=== PATIENT | male | born 1955 | race Caucasian/White ===

== ENCOUNTER 2018-06-15 07:38 | Inpatient (IN) | payer BC ==
[2018-06-15 07:46] VITALS: BMI 24.3
--- NOTE | 2018-06-15 08:11 | PDOC ---
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 Patient at bedside to assist in report. Patient reports acute of slurred speech, noted by his at approximately 0730 AM this morning. Last known well was 1000 PM yesterday evening (06/14/18) before going to bed. Also yesterday evening 1000 PM patient BS~130. This morning at 0745 BS~61. noted patient dysarthria, on attempt to pronounce juice. She assisted patient out of bed and into the car. Patient states that patient symptoms gradually improved on presentation to hospital. Patient states he is now at baseline, but feels tremulous, and fatigued. Patient states that symptoms similiar to prior TIA , CVA, and hypoglycemic episodes. Denies head trauma, LOC. Patient Drank 6 cups of orange juice this morning, per . Patient denies N/V, dysphagia, convulsions, LOC, F/C, GOODMAN, hearing loss, tinnitus, palpitations, orthopnea, PND, CP, SOB, urinary complaints, abdominal pain, diarrhea, constipation, lightheadedness, sensory changes. PMHx: as noted above ROS: as noted SHx: Denies h/o tobacco use or IVDA. Alcohol on weekends Allergies: NKDA PMD: Not on Staff. Dr. ulices Ulrich Neurology Past History - Past Medical History Allergies/Adverse Reactions: Allergies Allergy/AdvReac Type Severity Reaction Status Date / Time No Known Allergies Allergy Verified 06/15/18 07:41 Home Medications: Ambulatory Orders Ascorbate Calcium [Vitamin C] 500 mg PO DAILY 12/21/15 Aspirin [ASA -] 81 mg PO DAILY 12/21/15 Carvedilol [Coreg -] 6.25 mg PO DAILY 12/21/15 Cholecalciferol (Vitamin D3) [Vitamin D3] 2,000 unit PO DAILY 12/21/15 Ezetimibe [Zetia -] 10 mg PO DAILY 12/21/15 Levothyroxine [Synthroid -] 25 mcg PO DAILY 12/21/15 Magnesium Oxide [Magnesium] 500 mg PO DAILY 12/21/15 Mv-Mn/FA/Coq10/Lycopene/Lutein [Theragran-M Premier 50+ Caplet] 1 each PO DAILY 12/21/15 Nitroglycerin 0.4 mg SL DAILY PRN 12/21/15 [place]-3S/Dha/Epa/Fish Oil [Fish Oil 1,200 mg Softgel] 1 tab PO DAILY 12/21/15 Quinapril HCl [Accupril -] 40 mg PO DAILY 12/21/15 Simvastatin [Zocor -] 40 mg PO HS 12/21/15 Zinc 50 mg PO DAILY 12/21/15 Insulin Lispro [Humalog] 0 unit SQ DAILY #0 12/22/15 Anemia: No Asthma: No Cancer: No Cardiac Disorders: Yes ([place]) CVA: Yes (2014) COPD: No CHF: No Dementia: No Diabetes: Yes (IDDM-ON INSULIN PUMP) GI Disorders: No Disorders: No HTN: Yes Hypercholesterolemia: Yes Liver Disease: No Seizures: No Thyroid Disease: Yes (HYPOTHYROID DISEASE) - Surgical History Abdominal Surgery: No Appendectomy: No Cardiac Surgery: Yes (STENT PLACEMENT) Cholecystectomy: No Lung Surgery: No Neurologic Surgery: No Orthopedic Surgery: No - Immunization History Td Vaccination: Yes TDAP Vaccination: Yes Immunization Up to Date: Yes - Suicide/Smoking/Psychosocial Hx Smoking Status: No Smoking History: Smoker current status UNK Years of Tobacco Use: 0 Number of Cigarettes Smoked Daily: 0 Cigars Per Day: 0 Hx Alcohol Use: Yes (WEEKENDS) Drug/Substance Use Hx: No Substance Use Type: None Hx Substance Use Treatment: No Neuro Specific PMHX - Complaint Specific PMHX Glaucoma: No Herniated Disk: No Laminectomy: No Migraine: No Multiple Sclerosis: No TIA: No Review of Systems - Review of Systems Comments:: 06/15/18 08:12 GENERAL/CONSTITUTIONAL: No fever or chills. No weakness. HEAD, EYES, EARS, NOSE AND THROAT: No change in vision. No ear pain or discharge. No sore throat. CARDIOVASCULAR: No chest pain or shortness of breath RESPIRATORY: No cough, wheezing, or hemoptysis. GASTROINTESTINAL: No nausea, vomiting, diarrhea or constipation. GENITOURINARY: No dysuria, frequency, or change in urination. MUSCULOSKELETAL: No joint or muscle swelling or pain. No neck or back pain. SKIN: No rash NEUROLOGIC: + Slurred speech, and generalized weakness. No headache, vertigo, loss of consciousness, or change in sensation. ENDOCRINE: No increased thirst. No abnormal weight change HEMATOLOGIC/LYMPHATIC: No anemia, easy bleeding, or history of blood clots. ALLERGIC/IMMUNOLOGIC: No hives or skin allergy. *Physical Exam - Vital Signs Last Vital Signs Temp Pulse Resp BP Pulse Ox 82 18 170/100 100 06/15/18 07:44 06/15/18 07:44 06/15/18 07:44 06/15/18 07:44 - Physical Exam Comments: 06/15/18 08:13 GENERAL: Awake, alert, and fully oriented, in no acute distress HEAD: No signs of trauma, normocephalic, atraumatic EYES: PERRLA, EOMI, sclera anicteric, conjunctiva clear ENT: + Slight right sided droop of lateral oral commisure. Hearing grossly normal, nares patent, oropharynx clear without exudates. Moist mucosa NECK: Normal ROM, supple, no lymphadenopathy, JVD, or masses LUNGS: No distress, speaks full sentences, clear to auscultation bilaterally HEART: Regular rate and rhythm, normal S1 and S2, no murmurs, rubs or gallops, peripheral pulses normal and equal bilaterally. ABDOMEN: Soft, nontender, normoactive bowel sounds. No guarding, no rebound. No masses EXTREMITIES : Normal inspection, Normal range of motion, no edema. No clubbing or cyanosis. NEUROLOGICAL: Cranial nerves II through XII grossly intact. Normal speech, normal gait, no focal sensorimotor deficits NIH Stroke Scale - Initial Evaluation Level of consciousness: Alert Ask patient the month and their age: Answers both correctly Ask patient to open & close eyes; make fist and let go: Obeys both correctly Best gaze (horizontal eye movement): Normal Visual field testing: No visual field loss Facial paresis (Show teeth/raise eyebrows/close eyes tight): Minor paralysis ( flattened nasolabial fold, asymmetry on smiling) Motor Function: Left Arm: Normal Motor Function: Right Arm: Normal (extends arm 90 (or 45) degrees for 10 seconds without drift Motor Function: Left Leg: Normal (extends leg 30 degrees for 5 seconds without drift) Motor Function: Right Leg: Normal (extends leg 30 degrees for 5 seconds without drift) Limb Ataxia: No ataxia Sensory(Use pinprick test arms,legs,trunk,face/side to side): Normal Best language (Describe picture, name items, read sentences): No Aphasia Dysarthria (read several words): Normal articulation Extinction and Inattention: No abnormality - Total Score NIH Stroke Scale Score: 1 tPA Exclusion checklist 3-4.5h - Time Elapsed Date last known well: 06/14/18 Time last known well: 10:00 Elaspsed time: 1 Day(s) and 2 Hour(s) and 17 Minutes - Thrombolytic Therapy Candidate Is patient eligible for thrombolytic therapy: No - Exclusion Criteria 3-4.5 hr SBP greater than 185 or DBP greater than 110mmHg despite tx: No Recent IC/spinal surgery,head trauma or stroke<3mos.: No Active internal bleeding: No Blding diathesis(low plt ct, inc PTT,INR>1.7 or use of NOAC): No Symptoms suggest subarachnoid hemorrhage: No CT demonstrates multilobar infarct(>1/3 cerebral hemiphere): No Arterial puncture at noncompressible site in previous 7 days: No Blood glucose concentration less than 50mg/dL (2.7mmol/L): No - Relative Exclusion Criteria 3-4.5 hr Life expectancy <1 yr or severe co-morbid illness: No : No Patient/family refused: No Rapid improvement: No Stroke severity too mild: Yes Recent acute IN (w/in previous 3 months): No Seizure at onset with postictal residual neuro impairments: No Major surgery or serious trauma w/in previous 14 days: No Recent GI or hemorrhage (w/in previous 21 days): No - Add'l Relative Exclusion 3-4.5 hr Age > 80: No Hx of both diabetes AND prior ischemic stroke: Yes Taking an oral anticoagulant regardless of INR: No NIHSS >25: No - Ineligibility reason(s) Reasons No tPA given: Outside of window - delayed arrival Critical Care Time/[facility] Note - Medical Decision Making Note: 06/15/18 08:11 63 yo h/o HTN, HLD, CAD, IDDM s/p insulin pump placement, recurrent hypoglycemia , [place] s/p stent placement 02/2010, 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 BP 170/100, vitals otherwise wnl, AF, A&Ox3. POC GLU~170. Pre-[facility] stroke scale + with right sided facial droop (baseline), otherwise unremarkable. NIHSS~ 1. Will consider CVA vs. TIA. Will assess for hypoglycemia, electrolyte abnml, metabolic and toxic derangements, acid-base disturbances, infection. ED Course: 06/15/18 08:21 Stroke Order Set: CBC,CMP, Cardiac, TG, PT/INR CTH PT/INR EKG: NSR with absent FARSHAD, STD. Normal interval duration and axis. Contacted Dr. Ulrich/Neurology [employer] answering service. Awaiting call back. 06/15/18 08:[address] Ulrich, who agrees with management, Will come see patient. 06/15/18 09:08 CTH: No acute intracranial pathology 06/15/18 09:15 CBC: Unremarkable Plan to admit [facility] for TIA. 06/15/18 09:31 CBC: Unremarkable *DC/Admit/Observation/Transfer Diagnosis at time of Disposition: Slurred speech, Weakness, TIA (transient ischemic attack) - Discharge Dispostion Condition at time of disposition: Stable Decision to Admit order: Yes - Referrals - Patient Instructions - Post Discharge Activity
[2018-06-15] MEDS: SODIUM CHLORIDE 1,000 ML IV SCH (08:14)
[2018-06-15 09:00] LABS: INR 0.88 (0.83-1.09); PROTHROMBIN TIME (PATIENT) 10.4 SEC (9.7-13.0)
[2018-06-15 09:10] LABS: ALBUMIN 3.8 g/dl (3.4-5.0); ALK PHOS 52 U/L (45-117); ANION GAP 6 MMOL/L (8-16); BILIRUBIN,TOTAL 0.5 mg/dL (0.2-1); BLOOD UREA NITROGEN 14 mg/dL (7-18); CALCIUM 8.2 mg/dL (8.5-10.1); CHLORIDE 102 mmol/L (98-107); CHOLESTEROL 179 mg/dL (50-200); CO2 29 mmol/L (21-32); CREATININE 0.8 mg/dL (0.55-1.3); GLUCOSE,RANDOM 164 mg/dL (74-106); HDL CHOLESTEROL 70 mg/dL (40-60); POTASSIUM 4.7 mmol/L (3.5-5.1); SGOT/AST 66 U/L (15-37); SGPT/ALT 81 U/L (13-61); SODIUM 137 mmol/L (136-145); TOT PROT 7.2 g/dl (6.4-8.2); TRIGLYCERIDES 259 mg/dL (0-150)
--- NOTE | 2018-06-15 09:16 | PDOC ---
Attending Attestation - Resident Resident Name: Otto Villela - ED Attending Attestation I have performed the following: I have examined & evaluated the patient, The case was reviewed & discussed with the resident, I agree w/resident's findings & plan, Exceptions are as noted - HPI HPI: 06/15/18 09:12 63-year-old male with a history of hypertension, hyperlipidemia, CAD, insulin- dependent diabetes mellitus, CVA with residual right-sided facial droop presents with resolved slurred speech and generalized weakness. Patient woke up with the symptoms, went to sleep at 10 PM last night. reports his insulin pump showed a blood sugar of 61 at the time of the symptoms. Patient is often hypoglycemic per the but typically only shows symptoms when his blood sugar is in the 20s and 30s. Denies any headache, fevers, stiff neck, dizziness , chest pain, shortness of breath, abdominal pain, n/v/d. - Physicial Exam PE: 06/15/18 09:14 agree with resident exam - Medical Decision Making 06/15/18 09:14 63yo M with MMP presents to the ED with resolved slurred speech. BP elevated on arrival to the 170s, otherwise vitals wnl. +R sided facial droop which is baseline for pt, no other deficits. DDx includes TIA vs CVA vs metabolic disarray vs infection. Case discussed with Dr. Ulrich by Dr. Villela. Anticipate admission.
[2018-06-15 09:18] LABS: BASO % 0.8 % (0-2.0); EOS % 1.6 % (0-4.5); HEMATOCRIT 39.1 % (35.4-49); HEMOGLOBIN 13.5 GM/dL (11.7-16.9); LYMPH % 24.1 % (8-40); MCH 30.3 pg (25.7-33.7); MCHC 34.6 g/dl (32.0-35.9); MEAN CELL VOLUME 87.5 fl (80-96); MEAN PLT VOLUME 7.1 fl (7.5-11.1); MONO % 7.2 % (3.8-10.2); NEUT % 66.3 % (42.8-82.8); PLATELET COUNT 260 K/MM3 (134-434); RBC 4.47 M/mm3 (4.00-5.60); RDW 13.5 % (11.9-15.9); WHITE BLOOD COUNT 6.2 K/mm3 (4.0-10.0)
--- NOTE | 2018-06-15 10:46 | PN ---
Teaching Attending Note Name of Resident: Baltazar Meredith ATTENDING PHYSICIAN STATEMENT I saw and evaluated the patient. I reviewed the resident's note and discussed the case with the resident. I agree with the resident's findings and plan as documented. SUBJECTIVE: Patient is a 63-year-old male with a history of hypertension, hyperlipidemia, CAD, insulin-dependent diabetes mellitus, CVA with residual right-sided facial droop presents with resolved slurred speech and generalized weakness. As per the blood sugar was 67 when she checked it. Usually when the blood sugar is in 20's when he starts symptoms. OBJECTIVE: Vital Signs Temperature Pulse Rate 78 06/15/18 08:06 Respiratory Rate 16 06/15/18 08:06 Blood Pressure 173/96 H 06/15/18 08:06 O2 Sat by Pulse Oximetry (%) 100 06/15/18 08:06 GENERAL: Awake, alert, and fully oriented, in no acute distress HEAD: No signs of trauma, normocephalic, atraumatic EYES: PERRLA, EOMI, sclera anicteric, conjunctiva clear ENT: No facial droop is noted , improved. oropharynx clear without NECK: Normal ROM, supple, no lymphadenopathy, JVD, or masses LUNGS: No distress, speaks full sentences, clear to auscultation bilaterally HEART: RRR, normal S1 and S2, no murmurs, rubs or gallops, peripheral pulses normal and equal bilaterally. ABDOMEN: Soft, nontender, normoactive bowel sounds. No guarding, no rebound. No masses EXTREMITIES : Normal inspection, Normal range of motion, no edema. No clubbing or cyanosis. NEUROLOGICAL: Cranial nerves II through XII grossly intact. Normal speech, gait is not observed. CBCD WBC 6.2 K/mm3 (4.0-10.0) 06/15/18 08:00 RBC 4.47 M/mm3 (4.00-5.60) 06/15/18 08:00 Hgb 13.5 GM/dL (11.7-16.9) 06/15/18 08:00 Hct 39.1 % (35.4-49) 06/15/18 08:00 MCV 87.5 fl (80-96) 06/15/18 08:00 MCHC 34.6 g/dl (32.0-35.9) 06/15/18 08:00 RDW 13.5 % (11.9-15.9) 06/15/18 08:00 Plt Count 260 K/MM3 (134-434) D 06/15/18 08:00 MPV 7.1 fl (7.5-11.1) L 06/15/18 08:00 CMP Sodium 137 mmol/L (136-145) 06/15/18 08:00 Potassium 4.7 mmol/L (3.5-5.1) 06/15/18 08:00 Chloride 102 mmol/L (98-107) 06/15/18 08:00 Carbon Dioxide 29 mmol/L (21-32) 06/15/18 08:00 Anion Gap 6 MMOL/L (8-16) L 06/15/18 08:00 BUN 14 mg/dL (7-18) 06/15/18 08:00 Creatinine 0.8 mg/dL (0.55-1.3) 06/15/18 08:00 Creat Clearance w eGFR > 60 (>60) 06/15/18 08:00 Random Glucose 164 mg/dL (74-106) H 06/15/18 08:00 Calcium 8.2 mg/dL (8.5-10.1) L 06/15/18 08:00 Total Bilirubin 0.5 mg/dL (0.2-1) 06/15/18 08:00 AST 66 U/L (15-37) H 06/15/18 08:00 ALT 81 U/L (13-61) H 06/15/18 08:00 Alkaline Phosphatase 52 U/L (45-117) 06/15/18 08:00 Total Protein 7.2 g/dl (6.4-8.2) 06/15/18 08:00 Albumin 3.8 g/dl (3.4-5.0) 06/15/18 08:00 CARDIAC ENZYMES Creatine Kinase 129 IU/L (26-308) 06/15/18 08:00 Troponin I < 0.02 ng/ml (0.00-0.05) 06/15/18 08:00 Current Medications Generic Name Dose Route Start Last Admin Trade Name Freq PRN Reason Stop Dose Admin Sodium Chloride 1,000 mls @ 42 mls/hr 06/15/18 08:00 06/15/18 08:14 Normal Saline - IV 42 mls/hr ASDIR ZOILA Administration Home Medications Medication Instructions Recorded Ascorbate Calcium [Vitamin C] 500 mg PO DAILY 12/21/15 Aspirin [ASA -] 81 mg PO DAILY 12/21/15 Carvedilol [Coreg -] 6.25 mg PO DAILY 12/21/15 Cholecalciferol (Vitamin D3) 2,000 unit PO DAILY 12/21/15 [Vitamin D3] Ezetimibe [Zetia -] 10 mg PO DAILY 12/21/15 Levothyroxine [Synthroid -] 25 mcg PO DAILY 12/21/15 Magnesium Oxide [Magnesium] 500 mg PO DAILY 12/21/15 Mv-Mn/FA/Coq10/Lycopene/Lutein 1 each PO DAILY 12/21/15 [Theragran-M Premier 50+ Caplet] Nitroglycerin 0.4 mg SL DAILY PRN 12/21/15 [place]-3S/Dha/Epa/Fish Oil [Fish 1 tab PO DAILY 12/21/15 Oil 1,200 mg Softgel] Quinapril HCl [Accupril -] 40 mg PO DAILY 12/21/15 Simvastatin [Zocor -] 40 mg PO HS 12/21/15 Zinc 50 mg PO DAILY 12/21/15 Insulin Lispro [Humalog] 0 unit SQ DAILY #0 12/22/15 ASSESSMENT AND PLAN: Patient is a 63 yo h/o HTN, HLD, CAD, IDDM s/p insulin pump placement, recurrent hypoglycemia, CT s/p stent placement 02/2010, 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 #Acute TIA: improved, no further facial droop , will monitor in the stroke unit euro. patient can go home. #TIDM: on insulin pump continue. #HLD: continue Zocor and Zetia continue #HTN urgency :continue home meds. discharge patient home after being seen by neuro. .
--- NOTE | 2018-06-15 11:10 | HP ---
CHIEF COMPLAINT: lower extremity weakness and slurred speech PCP: Dr. Prado HISTORY OF PRESENT ILLNESS: A 64 y.o. M last went to sleep at 10 pm feeling fine , Bs, awoke this morning with slurred speech and lower extremity weakness. Pt. checked his glucose and it was 61, which according to the Pt. did not correlate with symptoms as Pt. is usually symptomatic at a glucose of 20s- 30s. Pt. began to get ready to come to the hospital with assistance from and gradually improved with muscle movement and slurred speech. At the time Pt. had hand tremors bilaterally and had jerky movements with wide-based gait. Pt. has had 2 CVAs in the past and to hypokalemic events which mimicked CVA in the past as well wit the last CVA being in 2016. Pt. has a baseline ?right facial droop. ER course was notable for: (1)Head CT: No acute pathology (2)IVF: NS @ 42ml/hr (3)Neurlogy Consult: Dr. Ulrich Recent Travel: No PAST MEDICAL HISTORY: HTN, HLD, IDDM, CVA(x 2, last 2016 w/ residual right facial droop?), hypokalemia, and viral meningitis PAST SURGICAL HISTORY: [place] (2009 w/ stent x 2) Social History: Smoking: Denies Alcohol: 3 glasses of wine on weekends with . Drugs: Denies Family History: Father and Grandfather Type 1 DM. Allergies No Known Allergies Allergy (Verified 06/15/18 07:41) HOME MEDICATIONS: Home Medications Medication Instructions Recorded Ascorbate Calcium [Vitamin C] 500 mg PO DAILY 12/21/15 Aspirin [ASA -] 81 mg PO DAILY 12/21/15 Carvedilol [Coreg -] 6.25 mg PO DAILY 12/21/15 Cholecalciferol (Vitamin D3) 2,000 unit PO DAILY 12/21/15 [Vitamin D3] Ezetimibe [Zetia -] 10 mg PO DAILY 12/21/15 Levothyroxine [Synthroid -] 25 mcg PO DAILY 12/21/15 Magnesium Oxide [Magnesium] 500 mg PO DAILY 12/21/15 Mv-Mn/FA/Coq10/Lycopene/Lutein 1 each PO DAILY 12/21/15 [Theragran-M Premier 50+ Caplet] Nitroglycerin 0.4 mg SL DAILY PRN 12/21/15 [place]-3S/Dha/Epa/Fish Oil [Fish 1 tab PO DAILY 12/21/15 Oil 1,200 mg Softgel] Quinapril HCl [Accupril -] 40 mg PO DAILY 12/21/15 Simvastatin [Zocor -] 40 mg PO HS 12/21/15 Zinc 50 mg PO DAILY 12/21/15 Insulin Lispro [Humalog] 0 unit SQ DAILY #0 12/22/15 REVIEW OF SYSTEMS CONSTITUTIONAL: Absent: fever, chills, diaphoresis, generalized weakness, malaise, loss of appetite, weight change HEENT: Absent: rhinorrhea, nasal congestion, throat pain, throat swelling, difficulty swallowing, mouth swelling, ear pain, eye pain, visual changes CARDIOVASCULAR: Present: lightheadedness Absent: chest pain, syncope, palpitations, irregular heart rate, peripheral edema RESPIRATORY: Absent: cough, shortness of breath, dyspnea with exertion, orthopnea, wheezing, stridor, hemoptysis GASTROINTESTINAL:Absent: abdominal pain, abdominal distension, nausea, vomiting , diarrhea, constipation, melena, hematochezia GENITOURINARY: Absent: dysuria, frequency, urgency, hesitancy, hematuria, flank pain, genital pain MUSCULOSKELETAL: Absent: myalgia, arthralgia, joint swelling, back pain, neck pain SKIN: Absent: rash, itching, pallor HEMATOLOGIC/IMMUNOLOGIC: Absent: easy bleeding, easy bruising, lymphadenopathy, frequent infections ENDOCRINE: Absent: unexplained weight gain, unexplained weight loss, heat intolerance, cold intolerance NEUROLOGIC: Present: unsteady gait Absent: headache, focal weakness or paresthesias, dizziness, seizure, mental status changes, bladder or bowel incontinence PSYCHIATRIC: Absent: anxiety, depression, suicidal or homicidal ideation, hallucinations. PHYSICAL EXAMINATION Vital Signs - 24 hr 06/15/18 06/15/18 06/15/18 07:44 07:45 08:06 Pulse Rate 82 Pulse Rate [ 78 Apical] Respiratory 18 16 Rate Blood Pressure 170/100 Blood Pressure 173/96 H [Right Arm] O2 Sat by Pulse 100 100 100 Oximetry (%) GENERAL: Awake, alert, and fully oriented, in no acute distress. HEAD: Normal with no signs of trauma. No facial droop appreciated EYES: Pupils equal, round and reactive to light, extraocular movements intact, sclera anicteric, conjunctiva clear. No lid lag. EARS, NOSE, THROAT: Ears normal, nares patent, oropharynx clear without exudates. Moist mucous membranes. NECK: Normal range of motion, supple without lymphadenopathy, JVD, or masses. LUNGS: Breath sounds equal, clear to auscultation bilaterally. No wheezes, and no crackles. No accessory muscle use. HEART: Regular rate and rhythm, normal S1 and S2 without murmur ABDOMEN: Soft, nontender, not distended, normoactive bowel sounds, no guarding, no rebound, no masses. Insulin pump on right, sensor on left mid abdomen. MUSCULOSKELETAL: Normal range of motion at all joints. No bony deformities or tenderness. No CVA tenderness. UPPER EXTREMITIES: warm, well-perfused. No cyanosis. No clubbing. No peripheral edema. LOWER EXTREMITIES: 2+ dorsal pedal pulses, warm, well-perfused. No calf tenderness. No peripheral edema. NEUROLOGICAL: Cranial nerves II-XII intact. Normal speech. Gait not assessed. PSYCHIATRIC: Cooperative. Good eye contact. Appropriate mood and affect. SKIN: Warm, dry, normal turgor, no rashes or lesions noted Laboratory Results - last 24 hr 06/15/18 06/15/18 06/15/18 08:00 08:00 08:00 WBC 6.2 RBC 4.47 Hgb 13.5 Hct 39.1 MCV 87.5 MCH 30.3 MCHC 34.6 RDW 13.5 Plt Count 260 D MPV 7.1 L Absolute Neuts (auto) 4.1 Neutrophils % 66.3 Lymphocytes % 24.1 D Monocytes % 7.2 Eosinophils % 1.6 Basophils % 0.8 Nucleated RBC % 0 PT with INR 10.40 INR 0.88 Sodium 137 Potassium 4.7 Chloride 102 Carbon Dioxide 29 Anion Gap 6 L BUN 14 Creatinine 0.8 Creat Clearance w eGFR > 60 POC Glucometer Random Glucose 164 H Calcium 8.2 L Total Bilirubin 0.5 AST 66 H ALT 81 H Alkaline Phosphatase 52 Creatine Kinase 129 Troponin I < 0.02 Total Protein 7.2 Albumin 3.8 Triglycerides 259 H Cholesterol 179 Total LDL Cholesterol 80 HDL Cholesterol 70 H Blood Type Antibody Screen 06/15/18 06/15/18 08:00 08:12 WBC RBC Hgb Hct MCV MCH MCHC RDW Plt Count MPV Absolute Neuts (auto) Neutrophils % Lymphocytes % Monocytes % Eosinophils % Basophils % Nucleated RBC % PT with INR INR Sodium Potassium Chloride Carbon Dioxide Anion Gap BUN Creatinine Creat Clearance w eGFR POC Glucometer 170.99892 Random Glucose Calcium Total Bilirubin AST ALT Alkaline Phosphatase Creatine Kinase Troponin I Total Protein Albumin Triglycerides Cholesterol Total LDL Cholesterol HDL Cholesterol Blood Type O POSITIVE Antibody Screen Negative ASSESSMENT/PLAN: A 63 y.o. M w/ PMHx. of [place] (2010 w/ stent x 2), HTN, HLD, IDDM, CVA(x 2, last 2016 w/ residual right facial droop?), hypokalemia, and viral meningitis presents w/ resolving slurred speech and gait instability. #CVA likely TIA CT Head: no acute pathology Neurology consult with Dr. Ulrich appreciated Pt. endorses resolving symptoms NIHSS: 0 Carotid doppler: moderate atherosclerosis no hemodynamically significant stenosis Neurovascular checks Q4H Aspiration precautions: Able to swallow w/o difficulty f/u Physical Therapy #HTN Permissive HTN for 24 hrs and then resume home dose medications hold Coreg 6.25mg hold quinapril 40mg or TANA equivalent for hospital Home staff developer: Dr. Lr, ([phone]) #HLD c/w home dose Simvastatin c/w home dose Ezetimibe #CAD c/w ASA EKG: NSR, QTc: 472 #DM1 ISS ACHS BGM ACHS Home Oil Winterizer Dr. King ([phone]( #Hypothyroidism c/w home dose Synthroid #F/E/N NS @ 42ml/hr monitor electrolytes, replete as needed Diabetic diet #DVT Ppx. Hep SQ Visit type - Emergency Visit Emergency Visit: Yes ED Registration Date: 06/15/18 Care time: The patient presented to the Emergency Department on the above date and was hospitalized for further evaluation of their emergent condition. - New Patient This patient is new to me today: Yes Date on this admission: 06/15/18 - Critical Care Critical Care patient: No
[2018-06-15] MEDS ORDERED: NITROGLYCERIN SUBLINGUAL 1/150 0.4 MG TAB SL PRN (12:00)
[2018-06-15] MEDS: LEVOTHYROXINE NA 25 MCG TABLET (FP) PO SCH (12:50)
[2018-06-15] MEDS: ASPIRIN 81 MG CHEWABLE TABLETS PO SCH (12:50)
[2018-06-15] MEDS: CHOLECALCIFEROL (VITAMIN D3) 1,000 UNIT TABLET (FP) PO SCH (12:51)
[2018-06-15] MEDS: MULTIVITAMINS THER W-MINERALS COMBO TABLET (FP) PO SCH (12:51)
[2018-06-15] MEDS: EZETIMIBE 10 MG TABLET (FP) PO SCH (12:51)
[2018-06-15] MEDS: ASCORBIC ACID 500 MG TABLET (FP) PO SCH (12:51)
--- NOTE | 2018-06-15 13:31 | EKG ---
Test Reason : Blood Pressure : / mmHG Vent. Rate : 083 BPM Atrial Rate : 083 BPM P-R Int : 152 ms QRS Dur : 078 ms QT Int : 402 ms P-R-T Axes : 067 034 061 degrees QTc Int : 472 ms NORMAL SINUS RHYTHM NORMAL ECG WHEN COMPARED WITH ECG OF 21-DEC-2015 08:24, NO SIGNIFICANT CHANGE WAS FOUND Confirmed by KARIME MCBRIDE MD ([id number]) on 06/15/2018 1:31:23 PM Referred By: Confirmed By:KARIME MCBRIDE MD
[2018-06-15] MEDS: ZINC SULFATE 220 MG CAPSULE (FP) PO SCH (13:32)
[2018-06-15] MEDS: MAGNESIUM OXIDE 400 MG TABLET (FP) PO SCH (13:32)
[2018-06-15] MEDS: OMEGA-3 ACID ETHYL ESTERS (FATTY-ACIDS) 1 GM CAPSULE (FP) PO SCH (13:32)
[2018-06-15] MEDS ORDERED: FLU VACCINE QUAD 60 MCG/0.5 ML (MDV 18-19) IM ONE (16:00)
[2018-06-15] MEDS ORDERED: INSULIN SLIDING SCALE (NOVOLOG) 1 VIAL SQ SCH (16:30)
--- NOTE | 2018-06-15 19:03 | CONSULT ---
Consult - text type - Consultation Consultation Note: NEUROLOGY CONSULTATION is greatly appreciated: Events reviewed and discussed with RN and patient's at the bedside. This 63 yo RH retired man has a long h/o DM on an insulin pump. Also, hypothyroidism, HTN, Chol on ASA, carvedilol, zetia, synthroid, NTG, Quinipril, and simvastatin. Well-known to me over many years with "unexplained, Diffuse, weakness involving both arms, legs and, to a lessor extend, swallowing and speech. The longest episode was up to 2 days. All "stroke" work-ups have been unrevealing. 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 Awoke yesterday AM with diffuse weakness, dysarthria and inability to get out of bed or even lift his arms. Resolved in 3 hours and his drove him to the ED. Now feels "completely normal." CT of head (reviewed): Normal Carotid Duplex: Moderate ASVD without hemodynamic changes. ASHOK: No bruits. Cor: Reg. NEURO: MS/Speech: Normal CN II-XII: normal Motor: No drift or tremor. Normal strength, tone, bulk and reflexes except absent AJ's. Toes downgoing Coord: No FTN Dystaxia Sensory: Normal. Romberg neg Gait: Normal. IMP: Normal neurological Exam. Episodic, diffuse weakness c/w (Hypokalemic) Periodic Paralysis. Now normal with full resolution of symptoms. SUGGEST: Stable for discharge. Events discussed in detail with patient and his . Neuro f/u as out patient. Thank you very much, Baltazar Ulrich MD
[2018-06-15] MEDS ORDERED: ATORVASTATIN CA 20 MG TABLET (FP) PO SCH (22:00)
[2018-06-16] MEDS: LEVOTHYROXINE NA 25 MCG TABLET (FP) PO SCH (06:05)
[2018-06-16 07:48] LABS: ANION GAP 7 MMOL/L (8-16); BLOOD UREA NITROGEN 14 mg/dL (7-18); CALCIUM 8.1 mg/dL (8.5-10.1); CHLORIDE 104 mmol/L (98-107); CO2 28 mmol/L (21-32); CREATININE 0.9 mg/dL (0.55-1.3); GLUCOSE,RANDOM 132 mg/dL (74-106); MAGNESIUM 2.5 mg/dL (1.8-2.4); PHOSPHOROUS 3.1 mg/dL (2.5-4.9); POTASSIUM 4.1 mmol/L (3.5-5.1); SODIUM 138 mmol/L (136-145)
[2018-06-16] MEDS: SODIUM CHLORIDE 1,000 ML IV SCH (09:00)
[2018-06-16] MEDS: ASCORBIC ACID 500 MG TABLET (FP) PO SCH (09:59)
[2018-06-16] MEDS: ZINC SULFATE 220 MG CAPSULE (FP) PO SCH (09:59)
[2018-06-16] MEDS: CHOLECALCIFEROL (VITAMIN D3) 1,000 UNIT TABLET (FP) PO SCH (09:59)
[2018-06-16] MEDS: EZETIMIBE 10 MG TABLET (FP) PO SCH (09:59)
[2018-06-16] MEDS: MAGNESIUM OXIDE 400 MG TABLET (FP) PO SCH (09:59)
[2018-06-16] MEDS: OMEGA-3 ACID ETHYL ESTERS (FATTY-ACIDS) 1 GM CAPSULE (FP) PO SCH (09:59)
[2018-06-16] MEDS: MULTIVITAMINS THER W-MINERALS COMBO TABLET (FP) PO SCH (09:59)
[2018-06-16] MEDS: ASPIRIN 81 MG CHEWABLE TABLETS PO SCH (09:59)
[2018-06-16 12:28] VITALS: BP 155/90; PULSE 76; TEMP 98.4
--- NOTE | 2018-06-16 15:11 | PN ---
Teaching Attending Note Name of Resident: Baltazar Meredith ATTENDING PHYSICIAN STATEMENT I saw and evaluated the patient. I reviewed the resident's note and discussed the case with the resident. I agree with the resident's findings and plan as documented. SUBJECTIVE: Patient is comfortable with no acute distress. Back to his baseline. OBJECTIVE: Vital Signs Temperature 98.4 F 06/16/18 09:00 Pulse Rate 76 06/16/18 09:00 Respiratory Rate 18 06/16/18 09:00 Blood Pressure 155/90 06/16/18 09:00 O2 Sat by Pulse Oximetry (%) 96 06/16/18 09:00 GENERAL: Awake, alert, and fully oriented, in no acute distress HEAD: No signs of trauma, normocephalic, atraumatic EYES: PERRLA, EOMI, sclera anicteric, conjunctiva clear ENT: No facial droop on the right sided. oropharynx clear without. NECK: Normal ROM, supple, no lymphadenopathy, JVD, or masses LUNGS: No distress, speaks full sentences, clear to auscultation bilaterally HEART: RRR, normal S1 and S2, no murmurs, rubs or gallops, peripheral pulses normal and equal bilaterally. ABDOMEN: Soft, nontender, normoactive bowel sounds. No guarding, no rebound. EXTREMITIES : Normal inspection, Normal range of motion, no edema. No clubbing or cyanosis. NEUROLOGICAL: Cranial nerves II through XII grossly intact. Normal speech. CBCD WBC 6.2 K/mm3 (4.0-10.0) 06/15/18 08:00 RBC 4.47 M/mm3 (4.00-5.60) 06/15/18 08:00 Hgb 13.5 GM/dL (11.7-16.9) 06/15/18 08:00 Hct 39.1 % (35.4-49) 06/15/18 08:00 MCV 87.5 fl (80-96) 06/15/18 08:00 MCHC 34.6 g/dl (32.0-35.9) 06/15/18 08:00 RDW 13.5 % (11.9-15.9) 06/15/18 08:00 Plt Count 260 K/MM3 (134-434) D 06/15/18 08:00 MPV 7.1 fl (7.5-11.1) L 06/15/18 08:00 CMP Sodium 138 mmol/L (136-145) 06/16/18 05:50 Potassium 4.1 mmol/L (3.5-5.1) 06/16/18 05:50 Chloride 104 mmol/L (98-107) 06/16/18 05:50 Carbon Dioxide 28 mmol/L (21-32) 06/16/18 05:50 Anion Gap 7 MMOL/L (8-16) L 06/16/18 05:50 BUN 14 mg/dL (7-18) 06/16/18 05:50 Creatinine 0.9 mg/dL (0.55-1.3) 06/16/18 05:50 Creat Clearance w eGFR > 60 (>60) 06/16/18 05:50 Random Glucose 132 mg/dL (74-106) H 06/16/18 05:50 Calcium 8.1 mg/dL (8.5-10.1) L 06/16/18 05:50 Total Bilirubin 0.5 mg/dL (0.2-1) 06/15/18 08:00 AST 66 U/L (15-37) H 06/15/18 08:00 ALT 81 U/L (13-61) H 06/15/18 08:00 Alkaline Phosphatase 52 U/L (45-117) 06/15/18 08:00 Total Protein 7.2 g/dl (6.4-8.2) 06/15/18 08:00 Albumin 3.8 g/dl (3.4-5.0) 06/15/18 08:00 CARDIAC ENZYMES Creatine Kinase 129 IU/L (26-308) 06/15/18 08:00 Troponin I < 0.02 ng/ml (0.00-0.05) 06/15/18 08:00 Home Medications Medication Instructions Recorded Ascorbate Calcium [Vitamin C] 500 mg PO DAILY 12/21/15 Aspirin [ASA -] 81 mg PO DAILY 12/21/15 Carvedilol [Coreg -] 6.25 mg PO DAILY 12/21/15 Cholecalciferol (Vitamin D3) 2,000 unit PO DAILY 12/21/15 [Vitamin D3] Ezetimibe [Zetia -] 10 mg PO DAILY 12/21/15 Levothyroxine [Synthroid -] 25 mcg PO DAILY 12/21/15 Magnesium Oxide [Magnesium] 500 mg PO DAILY 12/21/15 Mv-Mn/FA/Coq10/Lycopene/Lutein 1 each PO DAILY 12/21/15 [Theragran-M Premier 50+ Caplet] Nitroglycerin 0.4 mg SL DAILY PRN 12/21/15 [place]-3S/Dha/Epa/Fish Oil [Fish 1 tab PO DAILY 12/21/15 Oil 1,200 mg Softgel] Quinapril HCl [Accupril -] 40 mg PO DAILY 12/21/15 Simvastatin [Zocor -] 40 mg PO HS 12/21/15 Zinc 50 mg PO DAILY 12/21/15 Insulin Lispro [Humalog] 0 unit SQ DAILY #0 12/22/15 ASSESSMENT AND PLAN: Patient is a 63 yo h/o HTN, HLD, CAD, IDDM s/p insulin pump placement, recurrent hypoglycemia, NE s/p stent placement 02/2010, 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 #Acute TIA: improved, no further facial droop resolved all the symptoms. As per neuro. patient can go home. #TIDM: on insulin pump continue. #HLD: continue Zocor and Zetia continue #HTN urgency :continue home meds. will discharge patient home.
--- NOTE | 2018-06-16 16:42 | DS ---
Physical Exam: SUBJECTIVE: Patient seen and examined. No acute events overnight. OBJECTIVE: Vital Signs Period Temp Pulse Resp BP Sys/Frye Pulse Ox Last 24 Hr 98.1 F-98.4 F 70-83 16-20 134-176/88-99 96-100 PHYSICAL EXAM GENERAL: Awake, alert, and fully oriented, in no acute distress. HEAD: Normal with no signs of trauma. No facial droop appreciated EYES: Pupils equal, round and reactive to light, extraocular movements intact, sclera anicteric, conjunctiva clear. No lid lag. EARS, NOSE, THROAT: Ears normal, nares patent, oropharynx clear without exudates. Moist mucous membranes. NECK: Normal range of motion, supple without lymphadenopathy, JVD, or masses. LUNGS: Breath sounds equal, clear to auscultation bilaterally. No wheezes, and no crackles. No accessory muscle use. HEART: Regular rate and rhythm, normal S1 and S2 without murmur ABDOMEN: Soft, nontender, not distended, normoactive bowel sounds, no guarding, no rebound, no masses. Insulin pump on right, sensor on left mid abdomen. MUSCULOSKELETAL: Normal range of motion at all joints. No bony deformities or tenderness. No CVA tenderness. UPPER EXTREMITIES: warm, well-perfused. No cyanosis. No clubbing. No peripheral edema. LOWER EXTREMITIES: 2+ dorsal pedal pulses, warm, well-perfused. No calf tenderness. No peripheral edema. NEUROLOGICAL: Cranial nerves II-XII intact. Normal speech. Gait not assessed. PSYCHIATRIC: Cooperative. Good eye contact. Appropriate mood and affect. SKIN: Warm, dry, normal turgor, no rashes or lesions noted LABS Laboratory Results - last 24 hr 06/15/18 06/16/18 16:47 05:50 Sodium 138 Potassium 4.1 Chloride 104 Carbon Dioxide 28 Anion Gap 7 L BUN 14 Creatinine 0.9 Creat Clearance w eGFR > 60 POC Glucometer 118 Random Glucose 132 H Calcium 8.1 L Phosphorus 3.1 Magnesium 2.5 H HOSPITAL COURSE: Date of Admission:06/15/18 Date of Discharge: 06/16/18 Pt. observed for concerns of CVA. Pt. had resolution of symptoms in the ED and by the time we examined Pt. Head CT was negative for acute pathology. Carotid Doppler negative for hemodynamically significant stenosis. Consult to Neurology appreciated and confirmed that this was not a CVA but Periodic Paralysis, usually secondary to hypokalemia. Hospital course discussed and agreed upon with Pt. Minutes to complete discharge: 34 Discharge Summary Reason For Visit: SLURRED SPEECH, TIA Condition: Stable - Instructions Diet, Activity, Other Instructions: You were in the hospital for a possible transient ischemic attack (mini-stroke) We performed tests to see if you were having a stroke, the tests came back negative for stroke. You were seen by our neurologists and as per neurologist you had a Periodic paralysis due to electrolyte imbalance. Please follow up with your Primary Care Provider within 1 week Please follow up with your neurologist within 1-2 weeks. Please return to the ED if you are experiencing slurred speech, sudden onset muscle weakness or numbness, loss of vision or chest pain. Referrals: Baltazar Ulrich MD [Staff Physician] - 1 Week Arianna Roberts MD [Primary Care Provider] - 1 Week Disposition: HOME - Home Medications Comprehensive Discharge Medication List: Ambulatory Orders Ascorbate Calcium [Vitamin C] 500 mg PO DAILY 12/21/15 Aspirin [ASA -] 81 mg PO DAILY 12/21/15 Carvedilol [Coreg -] 6.25 mg PO DAILY 12/21/15 Cholecalciferol (Vitamin D3) [Vitamin D3] 2,000 unit PO DAILY 12/21/15 Ezetimibe [Zetia -] 10 mg PO DAILY 12/21/15 Levothyroxine [Synthroid -] 25 mcg PO DAILY 12/21/15 Magnesium Oxide [Magnesium] 500 mg PO DAILY 12/21/15 Mv-Mn/FA/Coq10/Lycopene/Lutein [Theragran-M Premier 50+ Caplet] 1 each PO DAILY 12/21/15 Nitroglycerin 0.4 mg SL DAILY PRN 12/21/15 [place]-3S/Dha/Epa/Fish Oil [Fish Oil 1,200 mg Softgel] 1 tab PO DAILY 12/21/15 Quinapril HCl [Accupril -] 40 mg PO DAILY 12/21/15 Simvastatin [Zocor -] 40 mg PO HS 12/21/15 Zinc 50 mg PO DAILY 12/21/15 Insulin Lispro [Humalog] 0 unit SQ DAILY #0 12/22/15 This patient is new to me today: No Emergency Visit: Yes ED Registration Date: 06/15/18 Care time: The patient presented to the Emergency Department on the above date and was hospitalized for further evaluation of their emergent condition. Critical Care patient: No - Discharge Referral Referred to [facility] Med P.C.: No
== END 2018-06-16 14:16 | disposition home or self-care (01) | DRG 69 ==
LOC: JER 07:38 → JERBED 09:32 → OBSVTOIN 11:12 → J4W 13:52
PROVIDERS: ADMIT Internal Medicine; ATTEND Internal Medicine
DX: G45.9 Transient cerebral ischemic attack, unspecified (principal); E11.9 Type 2 diabetes mellitus without complications; Z96.41 Presence of insulin pump (external) (internal); I10 Essential (primary) hypertension; I25.10 Atherosclerotic heart disease of native coronary artery without angina pectoris; E78.5 Hyperlipidemia, unspecified; I25.2 Old myocardial infarction; Z95.5 Presence of coronary angioplasty implant and graft; I69.392 Facial weakness following cerebral infarction; I16.0 Hypertensive urgency; E03.9 Hypothyroidism, unspecified
CPT/HCPCS: 36415; 70450-TC; 80048; 80053; 82465; 82550; 82962; 83718; 83721; 83735; 84100; 84478; 84484; 85025; 85610; 86850; 86900; 86901; 90688; 93005; 93010; 93880-TC; 97116-GP; 97161-GP; 99285-25; G0008; G0378; J7030

== ENCOUNTER 2019-05-20 06:04 | Day surgery (SDC) | payer BC ==
[2019-05-14 16:43] VITALS: BMI 25.0
[2019-05-20] MEDS ORDERED: PHENYLEPHRINE 2.5% OPHTH SOLN 15 ML BOTTLE ONE (06:43)
[2019-05-20] MEDS ORDERED: TROPICAMIDE 1% OPHTH SOLN 15 ML BOTTLE ONE (06:43)
[2019-05-20] MEDS ORDERED: CYCLOPENTOLATE HCL 1% OPHTH SOLN 2 ML BOTTLE ONE (06:43)
[2019-05-20] MEDS ORDERED: CIPROFLOXACIN 0.3% EYE DROPS 5 ML BOTTLE ONE (06:43)
[2019-05-20] MEDS ORDERED: BSS (NA/CA/MG/K) BALANCED SALT SOLUTION OPHTH SOLN 15 ML BOTTLE ONE (07:13)
[2019-05-20] MEDS ORDERED: EPINEPHrine/PF 1 MG/1 ML (1:1,000) AMPULE ONE (07:13)
[2019-05-20] MEDS ORDERED: CARBACHOL 0.01% INTRA-OCULAR 1.5 ML VIAL ONE (07:13)
[2019-05-20] MEDS ORDERED: LIDOCAINE 1% P/F 10 MG/ML VIAL ONE (07:13)
[2019-05-20] MEDS ORDERED: NEO/POLYMYX B SULF/DEXAMETH OPHTHALMIC 5ML BOTTLE ONE (07:13)
[2019-05-20] MEDS ORDERED: TETRACAINE 0.5% OPHTH SOLN 2 ML BOTTLE ONE (07:13)
[2019-05-20] MEDS ORDERED: MIDAZOLAM HCL 2 MG/2 ML SINGLE DOSE VIAL ONE (07:41)
[2019-05-20 09:01] VITALS: BP 110/68; PULSE 65; TEMP 98.2
--- NOTE | 2019-05-20 17:21 | OP ---
DATE OF OPERATION: 05/20/2019 OPERATIVE PROCEDURE: Lens Phacoemulsification with Posterior Chamber Intraocular Lens Placement, Right Eye. PREOPERATIVE DIAGNOSIS: Visually Significant Cataract of Right Eye. POSTOPERATIVE DIAGNOSIS: Visually Significant Cataract of Right Eye. SURGEON: Esau Dc MD ANESTHESIA: MAC ANESTHESIOLOGIST: PROCEDURE: The patient was brought to the operating room and placed under monitored anesthesia care by Anesthesia. A drop of Tetracaine was then placed over the right eye. The patient was then prepped and draped in the usual sterile manner. A speculum was then placed over the right eye. The eye was then well irrigated with copious amounts of BSS (balanced salt solution). The operating microscope was then moved into position. A paracentesis was performed using a 15 degree blade. At this point 0.5 mL of 1% preservative free-lidocaine was injected into the anterior chamber. Amvisc plus was then injected into the anterior chamber. A clear corneal incision was then formed using a 2.2 mm keratome. A capsulorrhexis was then performed in a continuous circular fashion beginning with a cystotome completed with an Utratas forceps. Hydrodissection was then performed using BSS on a cannula. The phaco probe was then introduced through the corneal wound and the cataract was removed using the phaco chop technique. Approximately 3 seconds of absolute phaco time was used. The remaining cortex was then removed using irrigation and aspiration with an I/A probe. The capsule was then filled with regular Amvisc and the capsule was noted to be intact. A previously selected foldable posterior chamber intraocular lens was then injected into the capsule through the corneal wound using a lens injector. It was then dialed into position using a Sinskey hook. The Amvisc was then removed using irrigation and aspiration. Miostat was then injected through the paracentesis to constrict the pupil. The paracentesis and corneal wound were then hydrated and noted to be watertight. A drop of Maxitrol was then placed over the eye. The speculum was removed and clear shield was taped over the eye. The patient tolerated the procedure well and there were no surgical complications. The patient was asked to follow up in my office the next day. ESAU DC M.D. [id number]
== END 2019-05-20 09:04 | disposition home or self-care (01) ==
LOC: FASU 06:04
PROVIDERS: ATTEND Ophthalmology
PROC: 08RJ3JZ Replacement of Right Lens with Synthetic Substitute, Percutaneous Approach (ICD-10-PCS; principal; 2019-05-20 08:16)
DX: H26.8 Other specified cataract (principal)

== ENCOUNTER 2021-04-26 06:26 | Day surgery (SDC) | payer BC ==
[2021-04-20 14:19] VITALS: BMI 23.5
[2021-04-26 07:03] VITALS: TEMP 97.9
[2021-04-26] MEDS ORDERED: EPINEPHrine/PF 1 MG/1 ML (1:1,000) AMPULE ONE (07:15)
[2021-04-26] MEDS ORDERED: LIDOCAINE 1% P/F 10 MG/ML VIAL ONE ×2 (07:15→07:17)
[2021-04-26] MEDS: TROPICAMIDE 1% OPHTH SOLN 15 ML BOTTLE ONE ×3 (07:15→07:25)
[2021-04-26] MEDS: CYCLOPENTOLATE 2% OPHTH SOLN 2 ML BOTTLE ONE ×3 (07:15→07:25)
[2021-04-26] MEDS ORDERED: TETRACAINE 0.5% OPHTH SOLN 2 ML BOTTLE ONE (07:15)
[2021-04-26] MEDS: PHENYLEPHRINE 2.5% OPHTH SOLN 15 ML BOTTLE ONE ×3 (07:15→07:25)
[2021-04-26] MEDS: CIPROFLOXACIN 0.3% EYE DROPS 5 ML BOTTLE ONE ×3 (07:15→07:25)
[2021-04-26] MEDS ORDERED: CARBACHOL 0.01% INTRA-OCULAR 1.5 ML VIAL ONE (07:16)
[2021-04-26] MEDS ORDERED: BSS (NA/CA/MG/K) BALANCED SALT SOLUTION OPHTH SOLN 15 ML BOTTLE ONE (07:16)
[2021-04-26] MEDS ORDERED: NEO/POLYMYX B SULF/DEXAMETH OPHTHALMIC 5ML BOTTLE ONE (07:16)
[2021-04-26] MEDS ORDERED: MIDAZOLAM HCL 2 MG/2 ML SINGLE DOSE VIAL ONE (07:44)
[2021-04-26 08:56] VITALS: PULSE 73
[2021-04-26 09:14] VITALS: BP 122/65
== END 2021-04-26 09:21 | disposition home or self-care (01) ==
LOC: FASU 06:26
PROVIDERS: ATTEND Ophthalmology
PROC: 08RK3JZ Replacement of Left Lens with Synthetic Substitute, Percutaneous Approach (ICD-10-PCS; principal; 2021-04-26 08:22)
DX: H26.8 Other specified cataract (principal)
CPT/HCPCS: 82962